=== PATIENT | female | born 1970 | race Caucasian/White ===

== ENCOUNTER 2021-09-01 12:45 | Emergency (ER) | payer OTHER ==
[~2021-09-01] VITALS: Ht 154.9 cm; Wt 59.0 kg
[2021-09-01 12:45] VITALS: BP 162/85
--- NOTE | 2021-09-01 12:46 | NUR ---
EMT at bedside for EKG
--- NOTE | 2021-09-01 12:46 | NUR ---
LEIDA BOLANOS VIA GURNEY TO BED 03.
[2021-09-01] MEDS ORDERED: NACL 0.9% 1,000 ML IV ONE (13:05)
--- NOTE | 2021-09-01 13:10 | NUR ---
50 y/o F BIBA from home c/o heart racing since 1100. Denies N/V/CP at this time. States that her VAZQUEZ and dizziness resolved. Pt remains AOX4, able to make needs known and follow comands. Resp even and unlabored on RA. ST HR 110. Pt reports to be feeling anxiety that has decreased since entering the hospital. Denies elicit drug use/smoking/alcohol at this time. PMH: HTN Meds: Benazepril, Red Yeast(cholesterol supp), Coenzyme Q-10 Supplement(Cholesterol). Allergies: Denies
--- NOTE | 2021-09-01 13:35 | NUR ---
LAB AT BEDSIDE TO COLLECT BLOOD SPECIMENS.
[2021-09-01 13:41] LABS: BASOPHILS # (AUTO) 0.1 K/uL (0.00-0.22); BASOPHILS % (AUTO) 1.2 % (0.0-2.0); EOSINOPHILS # (AUTO) 0.1 K/uL (0-0.4); EOSINOPHILS % (AUTO) 0.9 % (0.0-4.0); HEMATOCRIT 38.6 % (36-48); HEMOGLOBIN 13.2 g/dL (12.0-16.0); LYMPHOCYTES # (AUTO) 1.4 K/uL (2.5-16.5); MEAN CORPUSCULAR HEMOGLOBIN 31 pg (27-31); MEAN CORPUSCULAR HGB CONC 34 g/dL (33-37); MEAN CORPUSCULAR VOLUME 90.1 fL (80-94); MONOCYTES # (AUTO) 0.5 K/uL (0.8-1.0); MONOCYTES % (AUTO) 7.3 % (1.7-9.3); NEUTROPHILS # (AUTO) 4.9 K/uL (1.8-7.7); NEUTROPHILS % (AUTO) 70.6 % (42.2-75.2); PLATELET COUNT (AUTO) 212 K/uL (140-450); RED BLOOD CELL COUNT(AUTO) 4.29 MIL/uL (4.20-5.40); RED CELL DISTRIBUTION WIDTH 12.9 % (11.6-13.7)
--- NOTE | 2021-09-01 14:02 | NUR ---
Made contact with lab, pending labs will be in our system in about 10 minutes.
[2021-09-01 14:11] LABS: ALBUMIN 3.7 g/dL (3.4-5.0); ANION GAP 13.4 (8-16); CREATININE 0.7 mg/dL (0.6-1.3); MAGNESIUM 1.8 mg/dL (1.8-2.4); POTASSIUM 4.4 mmol/L (3.5-5.1); THYROID STIMULATING HORMONE 0.96 uIU/mL (0.34-3.74); TOTAL BILIRUBIN 0.2 mg/dL (0.0-1.0)
[2021-09-01 17:06] VITALS: BP 135/85
--- NOTE | 2021-09-01 17:06 | NUR ---
Patient discharged with v/s stable. Written and verbal after care instructions given and explained. Patient alert, oriented and verbalized understanding of instructions. Ambulatory with steady gait. All questions addressed prior to discharge. ID band removed. IV Discontinued. Patient advised to follow up with PMD. Opportunity to ask questions provided and answered.
== END 2021-09-01 17:06 | disposition home or self-care (01) ==
LOC: MED 12:45 → EDBD 12:45 → MED 17:06
DX: R00.2 Palpitations (principal); I10 Essential (primary) hypertension
CPT/HCPCS: 36415; 71045; 80053; 83735; 84443; 84484; 85025; 85379; 93005; 96360; 99285; J7030; Q0092